=== PATIENT | male | born 1995 | race Two or more races ===

== ENCOUNTER 2017-02-15 15:09 | Inpatient (IN) | payer MEDICAID ==
[~2017-02-15] VITALS: Ht 177.8 cm; Wt 121.4 kg
[2017-02-15] MEDS ORDERED: VANCOMYCIN PER PHARMACY IV ONE (16:00)
[2017-02-15] MEDS ORDERED: SODIUM CHLORIDE 0.9% 1,000ML IVBOLUS ONE ×2 (16:00)
[2017-02-15] MEDS ORDERED: ONDANSETRON 2MG/ML, 2ML IVPush ONE (16:00)
[2017-02-15] MEDS ORDERED: PIPERACILLIN/TAZO 3.375 GM in SODIUM CHLORIDE 0.9% 50 ML IVPB ONE (16:00)
[2017-02-15] MEDS ORDERED: SODIUM CHLORIDE FLUSH 10ML SYR IVF ONE (16:00)
[2017-02-15] MEDS ORDERED: PLEASE ENTER ALLERGIES MC SCH ×2 (16:30)
[2017-02-15] MEDS ORDERED: HYDROmorphone 1 MG/ML, 1ML ONE ×2 (16:38→18:25)
[2017-02-15] MEDS ORDERED: ONDANSETRON 2MG/ML, 2ML ONE ×2 (16:39→17:29)
[2017-02-15] MEDS: HYDROmorphone 1 MG/ML, 1ML IVPush PRN ×2 (16:42→18:33)
[2017-02-15 17:18] LABS: BLOOD UREA NITROGEN 11 mg/dL (7-18)
[2017-02-15] MEDS ORDERED: VANCOMYCIN 2,000 MG in SODIUM CHLORIDE 0.9% 500 ML IV ONE (17:30)
[2017-02-15] MEDS ORDERED: PHARMACOKINETIC CONSULTATION MC ONE ×2 (17:30→22:30)
[2017-02-15] MEDS ORDERED: OMNIPAQUE 350 MG/ML, 100ML BOTTLE ONE (17:57)
[2017-02-15] MEDS ORDERED: DIPHENHYDRAMINE 50 MG/ML, 1ML ONE (20:08)
[2017-02-15] MEDS ORDERED: FAMOTIDINE 20 MG/2 ML ONE (20:08)
[2017-02-15] MEDS ORDERED: FAMOTIDINE 20 MG/2 ML IVPush ONE (20:30)
[2017-02-15] MEDS ORDERED: DIPHENHYDRAMINE 50 MG/ML, 1ML IVPush ONE (20:30)
[2017-02-15] MEDS ORDERED: DOCUSATE 100 MG CAPSULE PO PRN (21:30)
[2017-02-15] MEDS ORDERED: ONDANSETRON 2MG/ML, 2ML IVPush PRN (21:30)
[2017-02-15] MEDS ORDERED: ACETAMINOPHEN 325 MG TABLET PO PRN (21:30)
[2017-02-15] MEDS ORDERED: TEMAZEPAM 15 MG CAPSULE PO PRN (21:30)
[2017-02-15] MEDS: HEPARIN 5,000 UNITS/ML, 1ML SQ SCH (21:30)
[2017-02-15] MEDS ORDERED: VANCOMYCIN PER PHARMACY MC PRN (22:30)
[2017-02-15] MEDS ORDERED: PHARMACOKINETIC MONITORING MC PRN (22:30)
[2017-02-16] MEDS ORDERED: PIPERACILLIN/TAZO 3.375 GM in SODIUM CHLORIDE 0.9% 100 ML IV SCH
[2017-02-16] MEDS ORDERED: SODIUM CHLORIDE 0.9% 1,000 ML IV SCH ×2 (01:00→15:43)
[2017-02-16] MEDS: PIPERACILLIN/TAZO 3.375 GM in SODIUM CHLORIDE 0.9% 50 ML IV SCH ×3 (01:05→18:05)
[2017-02-16] MEDS ORDERED: DIPHENHYDRAMINE 50 MG CAPSULE PO ONE (02:30)
[2017-02-16 03:26] VITALS: BP 125/80
[2017-02-16] MEDS: VANCOMYCIN 2,000 MG in SODIUM CHLORIDE 0.9% 500 ML IV SCH ×4 (03:34→20:28)
[2017-02-16] MEDS: HEPARIN 5,000 UNITS/ML, 1ML SQ SCH ×2 (05:30→13:30)
[2017-02-16] MEDS ORDERED: DAPTOMYCIN 700 MG in SODIUM CHLORIDE 0.9% 100 ML IVPB SCH (06:30)
[2017-02-16 07:08] LABS: BLOOD UREA NITROGEN 13 mg/dL (7-18)
[2017-02-16 07:16] VITALS: BP 121/78
[2017-02-16] MEDS: HYDROcodone/APAP 5/325 TABLET PO PRN ×2 (11:09→15:37)
[2017-02-16] MEDS ORDERED: DIPHENHYDRAMINE 50 MG/ML, 1ML IVPush PRN (12:30)
[2017-02-16 14:13] VITALS: BP 101/63
[2017-02-16] MEDS: ENOXAPARIN 40 MG/0.4 ML SQ SCH (16:46)
[2017-02-16 18:28] VITALS: BP 124/75
[2017-02-17] MEDS: PIPERACILLIN/TAZO 3.375 GM in SODIUM CHLORIDE 0.9% 100 ML IV SCH ×2 (01:16→06:03)
[2017-02-17 02:27] LABS: ASPARTATE AMINO TRANSFERASE 14 U/L (15-37); BLOOD UREA NITROGEN 13 mg/dL (7-18)
[2017-02-17 03:53] VITALS: BP 120/76
[2017-02-17] MEDS: HYDROcodone/APAP 5/325 TABLET PO PRN ×2 (08:58→22:16)
[2017-02-17 09:01] VITALS: BP 128/71
[2017-02-17] MEDS: VANCOMYCIN 2,000 MG in SODIUM CHLORIDE 0.9% 500 ML IV SCH ×2 (11:00→23:17)
[2017-02-17] MEDS: PIPERACILLIN/TAZO 3.375 GM in SODIUM CHLORIDE 0.9% 50 ML IV SCH ×2 (14:02→18:24)
[2017-02-17 17:34] VITALS: BP 127/77
[2017-02-17] MEDS: ENOXAPARIN 40 MG/0.4 ML SQ SCH (17:55)
[2017-02-17 20:28] VITALS: BP 132/78
[2017-02-17 23:29] LABS: OCCBLD OBC PASS
[2017-02-18] MEDS: PIPERACILLIN/TAZO 3.375 GM in SODIUM CHLORIDE 0.9% 50 ML IV SCH ×3 (01:26→15:44)
[2017-02-18 01:52] VITALS: BP 124/74
[2017-02-18] MEDS: HYDROcodone/APAP 5/325 TABLET PO PRN (04:53)
[2017-02-18 05:46] LABS: BLOOD UREA NITROGEN 10 mg/dL (7-18)
[2017-02-18 07:20] VITALS: BP 121/67
[2017-02-18] MEDS: MORPHINE SULFATE 4 MG/ML, 1ML IVPush PRN ×2 (10:07→22:58)
[2017-02-18] MEDS: VANCOMYCIN 2,000 MG in SODIUM CHLORIDE 0.9% 500 ML IV SCH (13:03)
[2017-02-18] MEDS: ENOXAPARIN 40 MG/0.4 ML SQ SCH (15:45)
[2017-02-18 17:59] VITALS: BP 129/83
[2017-02-18 19:23] VITALS: BP 129/76
[2017-02-18] MEDS: PIPERACILLIN/TAZO 3.375 GM in SODIUM CHLORIDE 0.9% 100 ML IV SCH (21:56)
[2017-02-19] MEDS: VANCOMYCIN 2,000 MG in SODIUM CHLORIDE 0.9% 500 ML IV SCH ×2 (00:39→12:54)
[2017-02-19 01:27] VITALS: BP 120/77
[2017-02-19] MEDS: PIPERACILLIN/TAZO 3.375 GM in SODIUM CHLORIDE 0.9% 100 ML IV SCH ×2 (05:49→09:55)
[2017-02-19 06:40] LABS: BLOOD UREA NITROGEN 7 mg/dL (7-18)
[2017-02-19 07:26] VITALS: BP 122/70
[2017-02-19] MEDS: FERROUS SULFATE 325 MG TABLET PO SCH (09:55)
[2017-02-19] MEDS: MORPHINE SULFATE 4 MG/ML, 1ML IVPush PRN (11:42)
[2017-02-19 13:22] VITALS: BP 130/78
[2017-02-19] MEDS: ENOXAPARIN 40 MG/0.4 ML SQ SCH (15:50)
[2017-02-19] MEDS: PIPERACILLIN/TAZO 3.375 GM in SODIUM CHLORIDE 0.9% 50 ML IV SCH ×2 (15:51→21:34)
[2017-02-19 19:54] VITALS: BP 125/70
[2017-02-20] MEDS: VANCOMYCIN 2,000 MG in SODIUM CHLORIDE 0.9% 500 ML IV SCH ×2 (00:55→13:02)
[2017-02-20 01:43] VITALS: BP 114/73
[2017-02-20] MEDS: PIPERACILLIN/TAZO 3.375 GM in SODIUM CHLORIDE 0.9% 50 ML IV SCH ×3 (04:10→15:40)
[2017-02-20 07:35] VITALS: BP 116/70
[2017-02-20] MEDS: FERROUS SULFATE 325 MG TABLET PO SCH (08:51)
[2017-02-20 09:07] LABS: TESTOSTERONE FREE DIRECT 6.6 pg/mL (Not Estab.); TESTOSTERONE TOTAL 323 ng/dL (.)
[2017-02-20 09:12] LABS: BLOOD UREA NITROGEN 8 mg/dL (7-18)
[2017-02-20] MEDS: HYDROcodone/APAP 5/325 TABLET PO PRN (10:06)
[2017-02-20 12:27] VITALS: BP 125/76
[2017-02-20] MEDS: ENOXAPARIN 40 MG/0.4 ML SQ SCH (15:41)
[2017-02-20] MEDS ORDERED: FERR325T20 PO (18:15)
[2017-02-20] MEDS ORDERED: ACID1TAB7 PO (18:15)
[2017-02-20] MEDS ORDERED: SULF1TAB3 PO (18:15)
[2017-02-20] MEDS ORDERED: CIPR500T87 PO (18:15)
[2017-02-20] MEDS ORDERED: HYDR-3240 PO (18:15)
[2017-02-20] MEDS ORDERED: CIPROFLOXACIN 500 MG TABLET PO SCH (21:00)
[2017-02-20] MEDS ORDERED: SULFAMETH./TRIMETHOPRIM DS 800MG/160MG TABLET PO SCH (21:00)
[2017-02-20] MEDS ORDERED: LACTOBACILLUS CHEW TABLET PO SCH (21:00)
== END 2017-02-20 20:30 | disposition home or self-care (01) | DRG 872 ==
LOC: EDBD 15:09 → ED 18:30 → EDIP 20:23 → 3NE 20:50
PROVIDERS: ADMIT Surgery; ATTEND Surgery
DX: A41.9 Sepsis, unspecified organism (principal); D68.59 Other primary thrombophilia; L73.2 Hidradenitis suppurativa; S41.102A Unspecified open wound of left upper arm, initial encounter; S41.101A Unspecified open wound of right upper arm, initial encounter; S31.501A Unspecified open wound of unspecified external genital organs, male, initial encounter; E66.9 Obesity, unspecified; Z68.38 Body mass index [BMI] 38.0-38.9, adult; D64.9 Anemia, unspecified
CPT/HCPCS: 36415; 71010; 74177; 80048; 80053; 80202; 80327; 82040; 82272; 82728; 83540; 83550; 83605; 84145; 84402; 84403; 85025; 85651; 86140; 87040; 87070; 87077; 87186; 87205; 96365; 96366; 96375; J1170; J1650; J2405; J2543; J3370; Q9967; G0480; J1200; J7030; J7040; S0028